=== PATIENT | male | born 1960 | race African-American/Black ===

== ENCOUNTER 2017-11-04 04:05 | Emergency (ER) | payer OTHER ==
[~2017-11-04] VITALS: Ht 172.7 cm; Wt 83.5 kg
[2017-11-04 04:11] VITALS: Ht 172.7 cm; Wt 83.5 kg
[2017-11-04 05:17] VITALS: BP 169/97
== END 2017-11-04 06:40 | disposition home or self-care (01) ==
LOC: ED 04:05
DX: M06.9 Rheumatoid arthritis, unspecified (principal)
CPT/HCPCS: J1885; J7512

== ENCOUNTER 2018-06-01 18:28 | Emergency (ER) | payer OTHER ==
[~2018-06-01] VITALS: Ht 175.3 cm; Wt 84.5 kg
[2018-06-01 18:32] VITALS: Ht 175.3 cm; Wt 84.5 kg
[2018-06-01 19:39] VITALS: BP 154/92
== END 2018-06-01 19:39 | disposition home or self-care (01) ==
LOC: ED 18:28
DX: M54.12 Radiculopathy, cervical region (principal); M06.9 Rheumatoid arthritis, unspecified
CPT/HCPCS: J1885; J7512

== ENCOUNTER 2019-05-26 09:33 | Emergency (ER) | payer OTHER ==
[~2019-05-26] VITALS: Ht 175.3 cm; Wt 85.3 kg
[2019-05-26 09:43] VITALS: Ht 175.3 cm; Wt 85.3 kg
[2019-05-26 10:57] VITALS: BP 146/95
== END 2019-05-26 10:57 | disposition home or self-care (01) ==
LOC: ED 09:33
DX: M79.642 Pain in left hand (principal); M79.641 Pain in right hand; M25.562 Pain in left knee; M25.561 Pain in right knee; M06.9 Rheumatoid arthritis, unspecified
CPT/HCPCS: J1100

== ENCOUNTER 2019-09-04 04:49 | Emergency (ER) | payer OTHER ==
[~2019-09-04] VITALS: Ht 175.3 cm; Wt 86.2 kg
[2019-09-04 07:22] VITALS: BP 156/100
== END 2019-09-04 07:22 | disposition home or self-care (01) ==
LOC: ED 04:49
DX: M06.9 Rheumatoid arthritis, unspecified (principal)
CPT/HCPCS: J1885

== ENCOUNTER 2019-09-19 14:21 | Emergency (ER) | payer OTHER ==
[~2019-09-19] VITALS: Ht 175.3 cm; Wt 86.6 kg
[2019-09-19 15:10] VITALS: Ht 175.3 cm; Wt 86.6 kg
[2019-09-19 15:55] VITALS: BP 165/80
== END 2019-09-19 15:55 | disposition home or self-care (01) ==
LOC: ED 14:21
DX: M54.5 Low back pain (principal); G89.29 Other chronic pain; M06.9 Rheumatoid arthritis, unspecified
CPT/HCPCS: J1885

== ENCOUNTER 2020-03-25 06:51 | Emergency (ER) | payer OTHER ==
[~2020-03-25] VITALS: Ht 175.3 cm; Wt 88.0 kg
[2020-03-25 07:10] VITALS: Ht 175.3 cm; Wt 88.0 kg
[2020-03-25 08:49] VITALS: BP 162/95
== END 2020-03-25 08:49 | disposition home or self-care (01) ==
LOC: ED 06:51
DX: M06.832 Other specified rheumatoid arthritis, left wrist (principal); M06.831 Other specified rheumatoid arthritis, right wrist; M06.862 Other specified rheumatoid arthritis, left knee; M06.861 Other specified rheumatoid arthritis, right knee; M13.842 Other specified arthritis, left hand; M13.841 Other specified arthritis, right hand; Z91.010 Allergy to peanuts; Z91.018 Allergy to other foods
CPT/HCPCS: J1885